=== PATIENT | female | born 1970 | race Caucasian/White ===

== ENCOUNTER 2019-11-11 11:50 | Emergency (ER) | payer OTHER ==
[2019-11-11 12:02] VITALS: BP 175/95; TEMP 97.9; O2SAT 99
--- NOTE | 2019-11-11 12:29 | RAD ---
2 radiographs left shoulder Indication: pain with flexion 8 months since fall Comparison: None. Impression: A.C. and glenohumeral joint alignment normal without acute fracture or dislocation. Minimal glenohumeral joint osteoarthritis. Minimal AC joint osteoarthritis. MRI could better evaluate for internal derangement as clinically indicated. Electronically signed by: Sid Montejo MD 11/11/2019 12:28 PM [facility]
--- NOTE | 2019-11-11 12:46 | ED.PDOC ---
History of Present Illness - General Chief Complaint: Upper Extremity Injury Stated Complaint: left shoulder pain Time Seen by Provider: 11/11/19 12:03 Source: patient Exam Limitations: no limitations - History of Present Illness Initial Comments: The patient is a 49-year-old female presented emergency room secondary to persistent left shoulder pain for the last 8 months or so. The patient apparently injured the shoulder around that time and has had discomfort since. Her main pain is with crossing her arm over in front of her and with flexion. No evidence of bony tenderness to palpation or deformity. Range of motion is preserved. No other injury. Timing/Duration: other - 8 months Severity: moderate Improving Factors: immobilization Worsening Factors: movement Associated Symptoms: denies symptoms Allergies/Adverse Reactions: Allergies NO KNOWN ALLERGY Allergy (Verified 11/11/19 12:02) Home Medications: Ambulatory Orders predniSONE [Prednisone] 20 mg PO DAILY #5 tab 11/11/19 Review of Systems - Review of Systems Constitutional: States: no symptoms reported EENTM: States: no symptoms reported Respiratory: States: no symptoms reported Cardiology: States: no symptoms reported Gastrointestinal/Abdominal: States: no symptoms reported Genitourinary: States: no symptoms reported Musculoskeletal: States: see HPI Skin: States: no symptoms reported Neurological: States: no symptoms reported All other Systems: No Change from Baseline Past Medical History (General) - Patient Medical History Hx Stroke: No Hx Congestive Heart Failure: No Hx Diabetes: No Surgical History: no surgical history - Vaccination History Hx Influenza Vaccination: No Hx Pneumococcal Vaccination: No - Social History Hx Tobacco Use: Yes Family Medical History - Family History Mother Family History: No Known Living Status: Unknown Physical Exam - Physical Exam General Appearance: Alert, Comfortable, No apparent distress Eye Exam: bilateral normal Ears, Nose, Throat: hearing grossly normal Neck: full range of motion, supple Respiratory: no respiratory distress, no accessory muscle use Cardiovascular/Chest: normal peripheral pulses, no edema Peripheral Pulses: radial,right: 2+, radial,left: 2+ Rectal Exam: deferred Back Exam: no CVA tenderness, no vertebral tenderness Extremity: normal range of motion - Passive, non-tender, no pedal edema, normal capillary refill, other - See history of present illness. 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 X-ray of the left shoulder is reassuring. It is most likely that she has a tear in 1 of the rotator cuff muscles. She needs to get set up with orthopedics for further evaluation. She will be written for 5 days of oral prednisone to help reduce inflammation in the area. She does need to do range of motion exercises. ER warnings are given for any acute worsening. zara delon [id number] - Results/Orders Results/Orders: X-ray of the left shoulder shows no evidence of significant bony pathology. There is mild arthritis of the joint. Departure - Departure Clinical Impression: Injury of muscle of rotator cuff Disposition: Discharge to Home or Self Care Condition: Fair Departure Forms: ED Discharge - Pt. Copy, Patient Portal Self Enrollment Instructions: Rotator Cuff Injury (DC), Shoulder Tendinopathy (DC), Rotator Cuff Tendinitis Strengthening Exercises, Rotator Cuff Tendinitis Stretching Exercises Diet: regular diet Activity: increase activity as tolerated Prescriptions: predniSONE [Prednisone] 20 mg PO DAILY #5 tab Home Medications: Ambulatory Orders predniSONE [Prednisone] 20 mg PO DAILY #5 tab 11/11/19 Additional Instructions: The patient is a 49-year-old female presenting secondary to long-term left shoulder pain. X-ray of the left shoulder is reassuring. It is most likely that she has a tear in 1 of the rotator cuff muscles. She needs to get set up with orthopedics for further evaluation. She will be written for 5 days of oral prednisone to help reduce inflammation in the area. She does need to do range of motion exercises. ER warnings are given for any acute worsening.
== END 2019-11-11 12:54 | disposition home or self-care (01) ==
LOC: ER 11:50
DX: S46.002A Unspecified injury of muscle(s) and tendon(s) of the rotator cuff of left shoulder, initial encounter (principal); M19.012 Primary osteoarthritis, left shoulder; Z87.891 Personal history of nicotine dependence; X58.XXXA Exposure to other specified factors, initial encounter; Y92.9 Unspecified place or not applicable

== ENCOUNTER 2020-09-21 05:05 | Day surgery (SDC) | payer OTHER ==
[2020-09-21] MEDS ORDERED: TROP1%/CYCLOPEN 1%/PHENYL 2.5% DROPS OPHTH ONE (05:06)
[2020-09-21] MEDS ORDERED: MIDAZOLAM INJ 2 MG/2 ML VIAL ONE ×2 (08:10→10:14)
[2020-09-21] MEDS ORDERED: MIDAZOLAM INJ 5 MG/5 ML VIAL ONE (09:48)
[2020-09-21] MEDS ORDERED: PROPARACAINE 0.5% OPHTH SOL 15 ML BTTL LEFT_EYE ONE ×2 (09:49→10:08)
[2020-09-21] MEDS ORDERED: LIDOCAINE 1% 2 ML VIAL INJ ONE ×2 (09:50→10:08)
[2020-09-21] MEDS ORDERED: DEXAMETHASONE 0.1% OPHTH SOL 1 DROP LEFT_EYE ONE ×2 (09:50→10:08)
[2020-09-21] MEDS ORDERED: MOXIFLOXACIN HCL (OPHTH) 1 DROP DROPS LEFT_EYE ONE ×2 (09:50→10:08)
[2020-09-21] MEDS ORDERED: TOBRAMYCIN SULF 0.3 % OPHT SOL 1 DROP LEFT_EYE ONE ×2 (09:51→10:08)
[2020-09-21] MEDS ORDERED: BRIMONIDINE 0.2% OPHTH DROPS LEFT_EYE ONE ×2 (09:51→10:08)
== END 2020-09-21 11:03 | disposition home or self-care (01) ==
LOC: AMB 05:05
PROVIDERS: ATTEND Ophthalmology
DX: H25.042 Posterior subcapsular polar age-related cataract, left eye (principal)
CPT/HCPCS: 00142; 66984; J2250

== ENCOUNTER 2020-09-30 05:32 | Day surgery (SDC) | payer OTHER ==
[2020-09-30] MEDS ORDERED: SODIUM CHL 0.9% 100ML MINI-BAG 100 ML IVPB ONE (05:56)
[2020-09-30] MEDS ORDERED: LACTATED RINGERS 1,000 ML ONE (05:56)
[2020-09-30] MEDS ORDERED: ceFAZolin SODIUM 1 GM VIAL ONE ×2 (05:57→09:15)
[2020-09-30] MEDS ORDERED: PROPOFOL 200 MG/20 ML VIAL IV ONE (07:00)
[2020-09-30] MEDS ORDERED: VANCOMYCIN HCL INJ 1,000 MG VIAL IVPB ONE ×2 (09:15→10:50)
[2020-09-30] MEDS ORDERED: LIDOCAINE 1% 10 ML VIAL INJ ONE ×2 (09:15→10:50)
[2020-09-30] MEDS ORDERED: BUPIVACAINE 0.25% INJ 30 ML VIAL INJ ONE ×2 (09:16→10:50)
[2020-09-30] MEDS ORDERED: MIDAZOLAM INJ 2 MG/2 ML VIAL ONE (10:43)
[2020-09-30] MEDS ORDERED: ceFAZolin SODIUM 1 GM VIAL IRRIG ONE (10:50)
--- NOTE | 2020-09-30 11:58 | OP ---
DATE OF PROCEDURE: 09/30/20 PREOPERATIVE DIAGNOSIS: 1. Right carpal tunnel syndrome. POSTOPERATIVE DIAGNOSIS: 1. Right carpal tunnel syndrome. PROCEDURE: 1. Right carpal tunnel release. SURGEON: Kamari Julien MD. COOK FRUIT: Bahman Ford CST, SA-C. ANESTHESIA: Local with sedation. COMPLICATIONS: None. FINDINGS: Thickening of the transverse carpal ligament. INDICATION: Ms. Coombs has a history of symptoms consistent with carpal tunnel syndrome. She has EMG confirmation of that. After discussing the risks, benefits and alternatives to that, the patient has given informed consent for carpal tunnel release. PROCEDURE: The patient was brought to the Operating Room and placed in the supine position. Sedation was administered and local anesthetic was injected into the operative area under sterile conditions. After the injection of anesthetic, the arm was sterilely prepped and draped. A longitudinal incision was made directly overlying the transverse carpal ligament and blunt dissection was carried down to the ligament. The transverse carpal ligament was sharply transected along its length and a Douglas elevator was used to ensure complete release of the ligament. Once release had been confirmed, the wound was thoroughly irrigated and the wound was closed with Nylon suture. A sterile dressing was placed and the patient was taken to the Day Surgery Unit. POSTOPERATIVE PLAN: The patient has been encouraged to do range of motion of the digits and will followup with us in one week. #[id number] [facility]
[2020-09-30 12:08] VITALS: BP 117/79; TEMP 97.2; O2SAT 99
== END 2020-09-30 12:05 ==
LOC: AMB 05:32
PROVIDERS: ATTEND Orthopaedic Surgery
DX: G56.01 Carpal tunnel syndrome, right upper limb (principal); F17.210 Nicotine dependence, cigarettes, uncomplicated; G43.909 Migraine, unspecified, not intractable, without status migrainosus; Z83.3 Family history of diabetes mellitus
CPT/HCPCS: 01810; 64721; 80307; 81025; 87070; J0690; J2250; J3370; J3490; J7050; J7120